=== PATIENT | female | born 1965 | race Caucasian/White ===

== ENCOUNTER 2018-05-14 10:28 | Emergency (ER) | payer OTHER ==
[2018-05-14 10:33] VITALS: BP 165/59; PULSE 72; TEMP 98.2; BMI 25.4
[2018-05-14] MEDS ORDERED: KETOROLAC TROMETHAMINE 60 MG/2 ML VIAL IM ONE (11:24)
[2018-05-14] MEDS ORDERED: KETOROLAC TROMETHAMINE 60 MG/2 ML VIAL ONE (11:30)
--- NOTE | 2018-05-14 11:31 | PDOC ---
History of Present Illness - General Chief Complaint: Pain Stated Complaint: PAIN Time Seen by Provider: 05/14/18 11:17 History Source: Patient Exam Limitations: Clinical Condition - History of Present Illness Initial Comments: 05/14/18 11:26 Patient with no significant past medical history present with complain of worsening right shoulder pain since yesterday without trauma or injury. Patient reported pain started suddenly while she was sitting down and has been worsening. Patient denies any heavy lifting, trauma or injury. Patient reported pain is localized to the anterior shoulder and axilla region. Patient denies any other symptoms Timing/Duration: 24 hours Past History - Past Medical History Allergies/Adverse Reactions: Allergies Allergy/AdvReac Type Severity Reaction Status Date / Time No Known Allergies Allergy Verified 05/14/18 10:33 Home Medications: Ambulatory Orders Methocarbamol [Robaxin -] 500 mg PO TID PRN #21 tablet 05/14/18 Naproxen 500 mg PO BID PRN #20 tablet 05/14/18 COPD: No - Suicide/Smoking/Psychosocial Hx Smoking History: Never smoked Review of Systems - Review of Systems Able to Perform ROS?: Yes Is the patient limited Upper Sorbian proficient: No Constitutional: Yes: Weakness (right shoulder). No: Chills, Fever Respiratory: No: Symptoms reported Cardiac (ROS): No: Symptoms Reported ABD/GI: No: Symptoms Reported Musculoskeletal: Yes: See HPI, Joint Pain (right shoulder), Muscle Pain (right anterior shoulder ), Muscle Weakness (right shoulder), Joint Stiffness (right shoulder) Neurological: No: Numbness, Paresthesia, Tingling All Other Systems: Reviewed and Negative *Physical Exam - Vital Signs Last Vital Signs Temp Pulse Resp BP Pulse Ox 98.2 F 72 18 165/59 L 99 05/14/18 10:30 05/14/18 10:30 05/14/18 10:30 05/14/18 10:30 05/14/18 10:30 - Physical Exam Comments: 05/14/18 11:28 GENERAL: Well developed, well nourished. Awake and alert. No acute distress. CARDIOVASCULAR: Regular rate and rhythm. No murmurs, rubs, or gallops. PULMONARY: No evidence of respiratory distress. Lungs clear to auscultation bilaterally. No wheezing, rales or rhonchi. ABDOMINAL: Soft. Non-tender. Non-distended. No rebound or guarding. No organomegaly. Normoactive bowel sounds MUSCULOSKELETAL : moderate tenderness to AC joint of right shoulder and axilla alrea. pain worse with elevation of right arm above 90 degress. noo bony deformities . 4/5 muscle strength of right shoulder EXTREMITIES: No cyanosis. No clubbing. No edema. No calf tenderness. SKIN: Warm and dry. Normal capillary refill. No rashes. No jaundice. NEUROLOGICAL: Alert, awake, appropriate. No motor deficits in the lower extremities. Gait is normal without ataxia. PSYCHIATRIC: Cooperative. Good eye contact. Appropriate mood and affect. General Appearance: Yes: Nourished, Appropriately Dressed. No: Apparent Distress ED Treatment Course - RADIOLOGY Radiology Studies Ordered: Category Date Time Status SHOULDER W/TRANS-RIGHT [RAD] Stat Radiology 05/14/18 11:24 Ordered Medical Decision Making - Medical Decision Making 05/14/18 11:30 Patient with no sig Past medical history presenting with complain of worsening right shoulder pain without trauma injury. Exam significant for moderate tenderness to right shoulder. Symptoms likely muscle strain. X-ray of right shoulder ordered. Toradol 60 mg IM ordered for pain. Treat based on imaging results. 05/14/18 12:10 x-ray of right shoulder negative. symptoms likely muscle strain. patient will be discharge on muscle relaxer and NSAIDS with orthopedics follow-up *DC/Admit/Observation/Transfer Diagnosis at time of Disposition: Right shoulder strain Qualifiers: Encounter type: initial encounter Qualified Code(s): S46.911A - Strain of unspecified muscle, fascia and tendon at shoulder and upper arm level, right arm , initial encounter - Discharge Dispostion Disposition: HOME Condition at time of disposition: Stable Decision to Admit order: No - Prescriptions Prescriptions: Methocarbamol [Robaxin -] 500 mg PO TID PRN #21 tablet PRN Reason: shoulder pain Naproxen 500 mg PO BID PRN #20 tablet PRN Reason: shoulder pain - Referrals Referrals: Too Haro MD [Primary Care Provider] - Jaun Zhou MD [Staff Physician] - - Patient Instructions Printed Discharge Instructions: Shoulder Tendinopathy, DI for Shoulder Pain Additional Instructions: The shoulder x-ray was normal. Take medications as prescribed as needed for pain. Follow-up with preferred orthopedics if symptoms persist for more than 4 days for possible MRI. - Post Discharge Activity
== END 2018-05-14 12:17 | disposition home or self-care (01) ==
LOC: JERFT 10:28 → JER 10:28 → JERFT 12:17
PROC: 3E0233Z Introduction of Anti-inflammatory into Muscle, Percutaneous Approach (ICD-10-PCS; principal; 2018-05-14)
DX: S46.811A Strain of other muscles, fascia and tendons at shoulder and upper arm level, right arm, initial encounter (principal); X58.XXXA Exposure to other specified factors, initial encounter; Y93.89 Activity, other specified; Y92.038 Other place in apartment as the place of occurrence of the external cause; Y99.8 Other external cause status
CPT/HCPCS: 73030-TC-RT-FY; 96372; 99281-25

== ENCOUNTER 2019-03-11 11:24 | Emergency (ER) | payer OTHER ==
[2019-03-11 11:38] VITALS: BP 160/76; PULSE 71; TEMP 98.4; BMI 25.4
--- NOTE | 2019-03-11 12:16 | PDOC ---
History of Present Illness - General Chief Complaint: Pain, Acute Stated Complaint: RT KNEE PAIN Time Seen by Provider: 03/11/19 12:01 History Source: Patient - History of Present Illness Initial Comments: 03/11/19 12:23 Onset of right knee pain over the past 2 days. 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 Thinks that this increasing amount of activity has caused some injury progressively to her right knee. States is swollen, tender in the posterior fossa in the right lateral aspect. As fever, swelling that is erythematous. Severity: reports: moderate Pain Location: reports: lower extremity Modifying Factors: improves with: None Loss of Consciousness: no loss of consciousness Associated Symptoms (Fall): denies symptoms Past History - Travel Traveled outside of the country in the last 30 days: No Close contact w/someone who was outside of country & ill: No (right knee) - Past Medical History Allergies/Adverse Reactions: Allergies Allergy/AdvReac Type Severity Reaction Status Date / Time No Known Allergies Allergy Verified 03/11/19 11:36 Home Medications: Ambulatory Orders Methocarbamol [Robaxin -] 500 mg PO TID PRN #21 tablet 05/14/18 Naproxen 500 mg PO BID PRN #20 tablet 05/14/18 Leg Brace [Knee Brace] 1 each MC DAILY #1 each 03/11/19 Naproxen 500 mg PO BID #30 tablet 03/11/19 COPD: No - Suicide/Smoking/Psychosocial Hx Smoking History: Never smoked Have you smoked in the past 12 months: No Information on smoking cessation initiated: No Hx Alcohol Use: No Drug/Substance Use Hx: No Review of Systems - Review of Systems Able to Perform ROS?: Yes Is the patient limited Portuguese proficient: Yes Constitutional: Yes: Symptoms Reported, See HPI. No: Fever, Malaise HEENTM: No: Symptoms Reported Musculoskeletal: Yes: Symptoms Reported, See HPI, Joint Pain, Joint Swelling Integumentary: Yes: Symptoms Reported All Other Systems: Reviewed and Negative *Physical Exam - Vital Signs Last Vital Signs Temp Pulse Resp BP Pulse Ox 98.4 F 71 18 160/76 99 03/11/19 11:37 03/11/19 11:37 03/11/19 11:37 03/11/19 11:37 03/11/19 11:37 - Physical Exam General Appearance: Yes: Nourished, Appropriately Dressed HEENT: positive: ROYCE, Normal ENT Inspection, TMs Normal, Pharynx Normal Neck: negative: Tender, Supple Musculoskeletal: positive: Normal Inspection Extremity: positive: Normal Capillary Refill. negative: Normal Inspection, Normal Range of Motion (Limited range of motion to extreme flexion, has tenderness in posterior fossa. Patella is mobile without crepitance or step-offs , has some mild tenderness in the lateral insertion lower insertion of ligament. Is ambulatory but walks with a limp. 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 Patient in agreement. Knee immobilizer and Naprosyn ordered and will follow up with orthopedist this week *DC/Admit/Observation/Transfer Diagnosis at time of Disposition: Strain of right knee Qualifiers: Encounter type: initial encounter Qualified Code(s): S86.911A - Strain of unspecified muscle(s) and tendon(s) at lower leg level, right leg, initial encounter - Discharge Dispostion Disposition: HOME Condition at time of disposition: Stable Decision to Admit order: No - Prescriptions Prescriptions: Leg Brace [Knee Brace] 1 each MC DAILY #1 each Naproxen 500 mg PO BID #30 tablet - Referrals Referrals: Too Haro MD [Primary Care Provider] - Justin Smart MD [Staff Physician] - - Patient Instructions Printed Discharge Instructions: DI for Knee Sprain Additional Instructions: Rest, ice to area on and off for 15 minutes 4-6 times a day Avoid heavy lifting or exercise until pain and swelling is resolved or until further directed Keep area highly elevated to reduce swelling Use splints/Lev wrap as directed Followup with orthopedist in one to 2 days if not improving, if significantly improved may wait one week for followup with orthopedist May use naproxen 1milligrams tablet every 12 hours as needed for pain - Post Discharge Activity Forms/Work/School Notes: Back to Work
== END 2019-03-11 12:29 | disposition home or self-care (01) ==
LOC: JERFT 11:24
PROC: 2W3QX3Z Immobilization of Right Lower Leg using Brace (ICD-10-PCS; principal; 2019-03-11)
DX: S86.811A Strain of other muscle(s) and tendon(s) at lower leg level, right leg, initial encounter (principal); X50.0XXA Overexertion from strenuous movement or load, initial encounter; Y93.89 Activity, other specified; Y92.89 Other specified places as the place of occurrence of the external cause; Y99.8 Other external cause status
CPT/HCPCS: 29530; 99282-25

== ENCOUNTER 2022-04-21 09:33 | Day surgery (SDC) | payer OTHER ==
[2022-04-19 14:34] VITALS: BMI 29.5
[2022-04-21] MEDS ORDERED: LIDOCAINE HCL/PF 2% SDV 5ML VIAL ONE (09:48)
[2022-04-21] MEDS ORDERED: PROPOFOL 120 ML ONE (09:49)
[2022-04-21 11:35] VITALS: RESP 20; TEMP 97.2
[2022-04-21 11:43] VITALS: BP 100/62
[2022-04-21 12:09] VITALS: PULSE 64
== END 2022-04-21 12:07 | disposition home or self-care (01) ==
LOC: FASU-ENDO 09:33
PROVIDERS: ATTEND Internal Medicine Gastroenterology
PROC: 0DB68ZX Excision of Stomach, Via Natural or Artificial Opening Endoscopic, Diagnostic (ICD-10-PCS; 2022-04-21)
PROC: 0DB48ZX Excision of Esophagogastric Junction, Via Natural or Artificial Opening Endoscopic, Diagnostic (ICD-10-PCS; 2022-04-21)
PROC: 0DB98ZX Excision of Duodenum, Via Natural or Artificial Opening Endoscopic, Diagnostic (ICD-10-PCS; principal; 2022-04-21 11:02)
DX: K29.50 Unspecified chronic gastritis without bleeding (principal); K21.00 Gastro-esophageal reflux disease with esophagitis, without bleeding; R10.13 Epigastric pain; K25.9 Gastric ulcer, unspecified as acute or chronic, without hemorrhage or perforation
CPT/HCPCS: 88305-TC; 88342-TC

== ENCOUNTER 2022-06-23 11:46 | Day surgery (SDC) | payer OTHER ==
[2022-06-04 08:35] VITALS: BMI 26.9
[2022-06-23 13:24] VITALS: RESP 19
[2022-06-23 13:26] VITALS: BP 111/65; PULSE 70; TEMP 97.8
== END 2022-06-23 13:30 | disposition home or self-care (01) ==
LOC: FASU-ENDO 11:46
PROVIDERS: ATTEND Internal Medicine Gastroenterology
PROC: 0DB68ZX Excision of Stomach, Via Natural or Artificial Opening Endoscopic, Diagnostic (ICD-10-PCS; 2022-06-23)
PROC: 0DB48ZX Excision of Esophagogastric Junction, Via Natural or Artificial Opening Endoscopic, Diagnostic (ICD-10-PCS; 2022-06-23)
PROC: 0DB98ZX Excision of Duodenum, Via Natural or Artificial Opening Endoscopic, Diagnostic (ICD-10-PCS; principal; 2022-06-23 12:35)
DX: K29.50 Unspecified chronic gastritis without bleeding (principal); K20.90 Esophagitis, unspecified without bleeding; K25.9 Gastric ulcer, unspecified as acute or chronic, without hemorrhage or perforation; R10.13 Epigastric pain
CPT/HCPCS: 88305-TC; 88342-TC

== ENCOUNTER 2022-12-29 12:04 | Day surgery (SDC) | payer OTHER ==
[2022-12-24 15:18] VITALS: BMI 26.4
[2022-12-29 12:41] VITALS: RESP 18
[2022-12-29 13:37] VITALS: TEMP 98
[2022-12-29 13:59] VITALS: BP 108/70; PULSE 75
== END 2022-12-29 14:16 | disposition home or self-care (01) ==
LOC: FASU-ENDO 12:04
PROVIDERS: ATTEND Internal Medicine Gastroenterology
PROC: 0DBN8ZX Excision of Sigmoid Colon, Via Natural or Artificial Opening Endoscopic, Diagnostic (ICD-10-PCS; principal; 2022-12-29 13:07)
DX: Z12.11 Encounter for screening for malignant neoplasm of colon (principal); D12.7 Benign neoplasm of rectosigmoid junction; D37.4 Neoplasm of uncertain behavior of colon; K64.8 Other hemorrhoids; K64.1 Second degree hemorrhoids; Z86.010 Personal history of colon polyps
CPT/HCPCS: 88305-TC

== ENCOUNTER 2024-11-07 09:57 | Day surgery (SDC) | payer OTHER ==
[2024-11-01 15:39] VITALS: BMI 27.3
[2024-11-07] MEDS ORDERED: LIDOCAINE HCL/PF 2% SDV 5ML VIAL ONE ×2 (11:51→12:13)
[2024-11-07] MEDS ORDERED: PROPOFOL 20 ML ONE (12:07)
[2024-11-07] MEDS ORDERED: PROPOFOL 40 ML ONE (12:23)
[2024-11-07 12:59] VITALS: TEMP 97
[2024-11-07 13:17] VITALS: RESP 18
[2024-11-07 13:19] VITALS: BP 122/60; PULSE 67
== END 2024-11-07 13:43 | disposition home or self-care (01) ==
LOC: FASU-ENDO 09:57
PROVIDERS: ATTEND Internal Medicine Gastroenterology
PROC: 0DBN8ZX Excision of Sigmoid Colon, Via Natural or Artificial Opening Endoscopic, Diagnostic (ICD-10-PCS; 2024-11-07)
PROC: 0DB98ZX Excision of Duodenum, Via Natural or Artificial Opening Endoscopic, Diagnostic (ICD-10-PCS; 2024-11-07)
PROC: 0DB68ZX Excision of Stomach, Via Natural or Artificial Opening Endoscopic, Diagnostic (ICD-10-PCS; 2024-11-07)
PROC: 0DB48ZX Excision of Esophagogastric Junction, Via Natural or Artificial Opening Endoscopic, Diagnostic (ICD-10-PCS; 2024-11-07)
PROC: 0DBP8ZX Excision of Rectum, Via Natural or Artificial Opening Endoscopic, Diagnostic (ICD-10-PCS; principal; 2024-11-07 12:24)
DX: Z12.11 Encounter for screening for malignant neoplasm of colon (principal); D12.8 Benign neoplasm of rectum; K63.5 Polyp of colon; K64.1 Second degree hemorrhoids; K29.50 Unspecified chronic gastritis without bleeding; R10.13 Epigastric pain; Z86.0109 Personal history of other colon polyps
CPT/HCPCS: 88305-TC; 88342-TC